=== PATIENT | male | born 1960 | race Asian ===

== ENCOUNTER 2023-03-27 01:23 | Emergency (ER) | payer MEDICAID ==
[~2023-03-27] VITALS: Ht 165.1 cm; Wt 75.0 kg
[2023-03-27 01:26] VITALS: BP 114/78; PULSE 89; RESP 16; TEMP 98.1; O2SAT 99
== END 2023-03-27 04:29 | disposition left against medical advice (07) ==
LOC: ER 01:23
DX: T25.022A Burn of unspecified degree of left foot, initial encounter (principal); T79.9XXA Unspecified early complication of trauma, initial encounter; X08.8XXA Exposure to other specified smoke, fire and flames, initial encounter; W40.8XXA Explosion of other specified explosive materials, initial encounter; Y93.89 Activity, other specified; Y92.89 Other specified places as the place of occurrence of the external cause; Y99.8 Other external cause status
CPT/HCPCS: 99281